=== PATIENT | female | born 1985 | race Caucasian/White ===

== ENCOUNTER 2017-11-05 21:48 | Emergency (ER) | payer BC ==
[~2017-11-05] VITALS: Ht 5116.1 cm; Wt 56.0 kg
[2017-11-05] MEDS ORDERED: LORazepam 0.5 MG tablet PO STA (23:51)
[2017-11-05] MEDS ORDERED: LORA0.5T PO (23:54)
[2017-11-06 00:08] VITALS: BP 110/84
== END 2017-11-06 00:09 | disposition home or self-care (01) ==
LOC: ER 21:49
DX: F41.9 Anxiety disorder, unspecified (principal)
CPT/HCPCS: 93005; 99284